=== PATIENT | male | born 1940 | race Caucasian/White ===

== ENCOUNTER 2016-12-01 07:31 | Day surgery (SDC) | payer MEDICARE ==
[2016-12-01] MEDS ORDERED: PHENYLEPHRINE HCL 2.5% OPTH 2ML BTL OP ONE (13:52)
[2016-12-01] MEDS ORDERED: PREDNISOLONE ACETATE 1% OPTH 10ML BOTTLE OPTH ONE (13:52)
[2016-12-01] MEDS ORDERED: TROPICAMIDE 1% 15ML BTL OP ONE (13:52)
[2016-12-01] MEDS ORDERED: TETRACAINE HCL 0.5% 15 ML OPTH BTL OPTH ONE (13:52)
[2016-12-01] MEDS ORDERED: DICLOFENAC SODIUM 2.5 ML DROPS OPTH ONE (13:52)
[2016-12-01] MEDS ORDERED: NEOMYCIN/POLY./DEXAM OPTH OINT OPTH ONE (13:52)
[2016-12-01] MEDS ORDERED: LIDOCAINE 2% MDV (20MG/ML) 20ML VIAL IV ONE (13:52)
[2016-12-01] MEDS ORDERED: TRIAMCINOLONE ACET 40 MG/ML VIAL IM ONE (13:52)
[2016-12-01] MEDS ORDERED: TOBRAMYCIN 0.3% OPTH DROP 5 ML BTL OPTH ONE (13:52)
[2016-12-01] MEDS ORDERED: EPINEPHRINE 1 MG/ML AMPUL SQ ONE (13:52)
--- NOTE | 2016-12-05 15:19 | OP NOTE CHAMES ---
DATE OF PROCEDURE: 12/01/16 PREOPERATIVE DIAGNOSIS: Nuclear sclerotic and posterior subcapsular cataract, left eye. POSTOPERATIVE DIAGNOSIS: Nuclear sclerotic and posterior subcapsular cataract, left eye. OPERATION: Phacoemulsification of cataractous lens with implantation of intraocular lens. LENS IMPLANT USED: Vega Model PCB00 + 19.5 diopters. COMPLICATIONS: None. PROCEDURE IN DETAIL: Following a retrobulbar and facial block, the patient was prepped and draped in the usual fashion for eye surgery. A lid speculum was placed in the left eye after which a 2.4 mm tunnel wound was placed at the temporal limbus and dissected into clear cornea. A paracentesis was placed at 2 oclock hours to the left and right of the initial incision and the chamber deepened with Viscoelastic. The keratome was then used to enter the anterior chamber after which the continuous circular capsulorrhexis was accomplished without difficulty using a bent needle and a Utrata forceps. Hydrodissection and hydrodelineation of the lens was performed after which the nucleus of the lens was removed using the Phaco handpiece in the [id number] technique. The residual cortical material was irrigated and aspirated from the eye after which the bag and chamber were re-examined. The bag was re-inflated with Viscoelastic and the intraocular lens injected into the capsular bag where it centered well. The Viscoelastic was then copiously irrigated and aspirated from the eye after which the temporal tunnel wound and paracentesis were hydrated and the wounds were examined. They were noted to be watertight. The lid speculum was removed from the eye and the eye patched and shielded. The patient was transferred to the recovery room in satisfactory condition and given an appointment to be reexamined in the clinic later today or as directed by Dr. Jamil. Ba Jamil M.D. Date & Time JOB NUMBER: [id number] MTDD
== END 2016-12-01 10:20 | disposition home or self-care (01) ==
LOC: SUR 07:31
PROVIDERS: ATTEND Ophthalmology
DX: H25.12 Age-related nuclear cataract, left eye (principal); J44.9 Chronic obstructive pulmonary disease, unspecified; H25.032 Anterior subcapsular polar age-related cataract, left eye; K74.60 Unspecified cirrhosis of liver
CPT/HCPCS: 66984; 00142; J3301; J0171

== ENCOUNTER 2017-01-10 13:46 | Emergency (ER) | payer MEDICARE ==
--- NOTE | 2017-01-10 14:07 | Emergency Department Record ---
History of Present Illness - General Chief Complaint: Hypotension Stated Complaint: LOW BP,IRREGULAR HEARTBEAT Time Seen by Provider: 01/10/17 13:55 Source: Patient Mode of Arrival: Ambulatory Limitations: No limitations - History of Present Illness Initial Comments: The patient is here due to worsening of his generalized weakness over the last 2 months. He states he has no energy and has felt increasing fatigue over that time. 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 Today he felt that his HR was irregular so he decided to come to the ER. He denies any CP, SOB, CROW, nausea, vomiting, dysuria, diarrhea or back pain. He did have a neg Nuclear Stress Test in late October of this year. The patient did drive himself to the ER and denies any worsening of his symptoms with standing and walking. MD Complaint: Other Onset/Timin -: Month(s) Timing: Unsure Description: Other History of Same: No History of Trauma: No Severity: Mild Improves With: Nothing Worsens With: Nothing Associated Symptoms: Shortness of breath, Weakness - [place] Coma Scale Eye Response: (4) Open spontaneously Motor Response: (6) Obeys commands Verbal Response: (5) Oriented [place] Total: 15 - Related Data Home Medications Medication Instructions Recorded Confirmed Last Taken Acetaminophen [Tylenol] 325 mg PO DAILY tab 02/02/16 01/10/17 Unknown Fluticasone/Salmeterol [Advair 1 puff IH BID puff 02/02/16 01/10/17 Unknown 100-50 Diskus] Mesalamine [Lialda] 1.2 gm PO BID tab. 02/02/16 01/10/17 Unknown Multivitamin [Multi-Vitamin Daily] 1 each PO DAILY tab 02/02/16 01/10/17 Unknown [place]-3 Fatty Acids/Fish Oil [Fish 1 cap PO QD cap 02/02/16 01/10/17 Unknown Oil 1,000 Mg Capsule] Furosemide [Lasix] 20 mg PO DAILY 01/10/17 01/10/17 Unknown Spironolactone [Spironolactone] 25 mg PO DAILY 01/10/17 01/10/17 Unknown Allergies Allergy/AdvReac Type Severity Reaction Status Date / Time No Known Drug Allergies Allergy Verified 01/10/17 13:57 Travel Screening - Travel/Exposure Within Last 30 Days Have you traveled within the last 30 days?: No Review of Systems Constitutional: Reports: Malaise. Denies: Chills Eyes: Denies: Eye discharge ENT: Denies: Congestion, Other Respiratory: Denies: Dyspnea Cardiovascular: Denies: Chest pain Endocrine: Reports: Fatigue Gastrointestinal: Denies: Abdominal pain Genitourinary: Denies: Hematuria Musculoskeletal: Denies: Back pain Past Medical History - SOCIAL HISTORY Smoking Status: Never smoker Alcohol Use: None Drug Use: None - RESPIRATORY Hx Respiratory Disorders: Yes Hx Pneumonia: Yes (2009) - CARDIOVASCULAR Hx Cardio Disorders: Yes Hx Edema: Yes Comment:: "small leak in valve" - NEURO Hx Neuro Disorders: Yes Hx Dizziness: Yes - GI Hx GI Disorders: Yes Hx Reflux: Yes Hx Liver Disease: Yes (liver bx 06/2015) Hx Nausea/Vomiting: Yes Hx Cirrhosis: Yes Hx of Polyps: Yes Comment:: ulcerative colitis - Hx Genitourinary Disorders: No - ENDOCRINE Hx Endocrine Disorders: No - MUSCULOSKELETAL Hx Musculoskeletal Disorders: Yes - PSYCH Hx Psych Problems: No - HEMATOLOGY/ONCOLOGY Hx Hematology/Oncology Disorders: Yes Hx Blood Transfusions: Yes Hx Blood Transfusion Reaction: No Family Medical History Any Significant Family History?: Yes Hx Heart Disease: Father Physical Exam - General General Appearance: Alert, Oriented x3, Cooperative, No acute distress - Head Head exam: Atraumatic, Normocephalic, Normal inspection - Eye Eye exam: Normal appearance, PERRL - ENT Throat exam: Normal inspection. negative: Tonsillar erythema, Tonsillar exudate - Neck Neck exam: Normal inspection, Full ROM. negative: Tenderness - Respiratory Respiratory exam: Normal lung sounds bilaterally. negative: Respiratory distress - Cardiovascular Cardiovascular Exam: Regular rate, Normal rhythm, Normal heart sounds - GI/Abdominal GI/Abdominal exam: Soft, Normal bowel sounds. negative: Tenderness - Extremities Extremities exam: Normal inspection, Full ROM, Normal capillary refill. negative: Tenderness - Back Back exam: Reports: Normal inspection - Neurological Neurological exam: Alert, Normal gait. negative: Abnormal gait, Motor sensory deficit - Psychiatric Psychiatric exam: negative: Anxious, Depressed Course Vital Signs 01/10/17 13:51 Temperature 98.0 F Pulse Rate 91 H Respiratory 20 Rate Blood Pressure 126/75 Pulse Ox 98 - Reevaluation(s) Reevaluation #1: The patient is doing well. He is up ambulating normally with no new symptoms. His BP has been stable in the ER and his HR has been regular. I did explain to the patient that his lab work does have some abnormalities but they are chronic for him and not significantly different than in the past. He is to see his PCP later this week for recheck. 01/10/17 15:13 Medical Decision Making - Data Complexity MDM Data: Labs Ordered and/or Reviewed, X-Ray Ordered and/or Reviewed, EKG Ordered and/or Reviewed - Lab Data Result diagrams: 01/10/17 14:10 01/10/17 14:10 - EKG Data -: EKG Interpreted by Me EKG: No Acute Changes, Normal EKG - Radiology Data Radiology results: Report reviewed (CXR: No acute changes.) Disposition Disposition: Discharge Clinical Impression: Weakness Disposition: Home, Self-Care Condition: (1) Good Instructions: Fatigue (ED) Additional Instructions: Please continue your regular medicines and see your PCP later this week for recheck. Call for an appointment. Please return to the ER for any problems. Forms: Patient Portal Access Time of Disposition: 15:22 Quality - Quality Measures Quality Measures: N/A - Blood Pressure Screening Blood Pressure Classification: Pre-Hypertensive BP Reading Systolic Measurement: 126 Diastolic Measurement: 75 Screening for High Blood Pressure: < Pre-Hypertensive BP, F/U Documented > [ G8950] Pre-Hypertensive Follow-up Interventions: Follow-up with rescreen every year.
[2017-01-10 14:15] LABS: BASO % 0.4 % (0-6); GRAN % 75.2 % (47-80); HEMATOCRIT 29.2 % (42.0-52.0); HEMOGLOBIN 10.4 gm/dl (14.0-18.0); LYMPH % 14.7 % (16-45); MEAN CORPUSCULAR HGB CONC 35.6 g/dl (32-36); MEAN PLATELET VOLUME 12.1 fl (7.4-10.4); MONO % 9.7 % (0-9); PLATELET COUNT 177 K/uL (130-400); RED BLOOD COUNT 2.89 M/uL (4.40-5.70); RED CELL DISTRIBUTION WIDTH 17.6 % (11.5-14.5); WHITE BLOOD COUNT W/O DIFF 4.8 K/uL (4.2-12.2)
[2017-01-10 14:17] LABS: MEAN CORPUSCULAR HEMOGLOBIN 35.9 pg (27-33)
[2017-01-10] MEDS: 0.9 % SODIUM CHLORIDE 1,000 ML BAG IV ONE (14:24)
[2017-01-10 14:31] LABS: INR 1.02; PARTIAL THROMBOPLASTIN TIME 27.5 SECONDS (24.5-39.1); PROTHROMBIN TIME (PATIENT) 11.5 SECONDS (9.5-12.1)
[2017-01-10 14:32] LABS: ALB/GLOB RATIO 0.8 (1.1-1.8); ALBUMIN 3.6 gm/dL (3.5-5.0); ALKALINE PHOSPHATASE 406 U/L (38-126); ALT/SGPT 110 U/L (21-72); ANION GAP 9.5 (7-16); AST/SGOT 176 U/L (17-59); BILIRUBIN,TOTAL 5.19 mg/dL (0.2-1.3); BLOOD UREA NITROGEN 19 mg/dL (9-20); CARBON DIOXIDE 25.5 mmol/L (22-30); CREATINE PHOSPHOKINASE 78 U/L (55-170); CREATININE 0.9 mg/dL (0.66-1.25); EST GLOMERULAR FILTRATION RATE > 60 ml/min; GLUCOSE,RANDOM 120 mg/dL (70-110); TOTAL PROTEIN 8.1 gm/dL (6.3-8.2)
[2017-01-10 14:43] LABS: TROPONIN I < 0.012 ng/mL (0.00-0.034)
--- NOTE | 2017-01-11 09:59 | RADIOLOGY REPORT ---
EXAM: CHEST, TWO VIEWS HISTORY: WEAKNESS. SHORTNESS OF BREATH. UNABLE TO WALK. TECHNIQUE: Upright PA and lateral views of the chest were obtained. Comparison: Two view chest radiographic examination dated 02/02/16. FINDINGS: The heart is not enlarged and the pulmonary vasculature is nondilated. The lungs appear hyperinflated consistent with COPD. Minor biapical pleural and parenchymal scarring. No lung consolidation is seen. Minor reticular opacity prominence is noted in the lower lungs consistent with mild chronic interstitial change/scarring. There are mild degenerative changes of the visualized spine and shoulder girdles. IMPRESSION: NO EVIDENCE OF ACUTE CARDIOPULMONARY DISEASE WITHOUT SIGNIFICANT CHANGE SINCE 02/02/16. CHRONIC FINDINGS, DETAILED ABOVE. JOB NUMBER: [id number] [facility]
== END 2017-01-10 15:28 | disposition home or self-care (01) ==
LOC: ER 13:46
DX: R53.1 Weakness (principal); R06.02 Shortness of breath; K74.60 Unspecified cirrhosis of liver; K51.90 Ulcerative colitis, unspecified, without complications
CPT/HCPCS: 71020; 80053; 82140; 82550; 82553; 84484; 85025; 85610; 85730; 93005; 93010; 96360; 99284; J7030

== ENCOUNTER 2017-03-16 08:04 | Day surgery (SDC) | payer MEDICARE ==
[2017-03-16] MEDS ORDERED: LIDOCAINE 2% MDV (20MG/ML) 20ML VIAL IV ONE (16:10)
[2017-03-16] MEDS ORDERED: PROPOFOL 10 MG/ML VIAL IV ONE (16:10)
[2017-03-16] MEDS ORDERED: FENTANYL PF 100MCG/2ML VIAL IV ONE (16:10)
--- NOTE | 2017-03-22 09:40 | Operative Note ---
DATE OF SURGERY: 03/16/2017 OPERATION: 1. ESOPHAGOGASTRODUODENOSCOPY. 2. COLONOSCOPY with biopsy. PREOPERATIVE DIAGNOSIS: History of PSC, ulcerative colitis, and cirrhosis. POSTOPERATIVE DIAGNOSES: 1. Small esophageal varices without stigmata of recent hemorrhage. 2. Portal gastropathy. 3. Colon polyps in the transverse and sigmoid colon, suspected pseudopolyps. 4. Burnt-out colitis. PROCEDURE: After informed consent was obtained from the patient, he was placed in the left lateral decubitus position in the endoscopy suite, sedated and monitored by the department of anesthesia. Once sedated, a well-lubricated [id number] gastroscope was placed in the posterior oropharynx and under direct visualization passed to the proximal esophagus. The endoscope was advanced through the proximal, mid, and distal esophagus. The distal esophagus demonstrated small varices. In fact, there were 3 columns of small varices. No stigmata of recent hemorrhage, fresh or old blood was seen. No inflammation was noted. The gastric body demonstrated normal distensibility, normal rugal folds. There was a mosaic pattern consistent with portal hypertensive gastropathy. J-turn views of the proximal stomach revealed no fundal or cardia varices. The endoscope was then straightened and retracted from the patient with no new findings or abnormalities were identified. Digital rectal exam was unremarkable. A well-lubricated [id number] colonoscope was inserted into the rectum and advanced to the cecum. Preparation quality was good to excellent. The ileocecal valve, appendiceal orifice, ascending colon, transverse colon, descending colon, sigmoid colon, and rectum were carefully inspected. There was a pale appearance to the mucosa and a loss of haustral markings in certain areas suggestive of burnt-out colitis. There were 2 hyperemic polyps in the transverse colon and 1 in the sigmoid colon that had the appearance of pseudopolyps. Each of these areas was biopsied and removed. Forward and J-turn views of the rectum and anorectum were unremarkable. The endoscope was straightened, the rectal ampulla deflated, and the endoscope was removed. RECOMMENDATIONS: At this point, I would suggest the patient be on a low-dose beta greg. I would suggest starting him on Inderal 10 mg 3 times per day. I will discuss this further with you given his history of COPD and concern that a beta greg in this instance could potentially exacerbate his COPD. A repeat upper endoscopy in 1 year would be suggested and a colonoscopy in 2 years would be suggested. In addition, given the elevation of his bilirubin, I would suggest an MRCP be performed to evaluate his biliary ductal system. As always, thank you for allowing me to participate in the healthcare of your patients. CC: Dr. Inez ECHOLS
== END 2017-03-16 10:00 | disposition home or self-care (01) ==
LOC: HOP 08:04
PROVIDERS: ATTEND Internal Medicine Gastroenterology
DX: K51.90 Ulcerative colitis, unspecified, without complications (principal); I85.00 Esophageal varices without bleeding; K76.6 Portal hypertension; D12.2 Benign neoplasm of ascending colon; K51.40 Inflammatory polyps of colon without complications; K52.89 Other specified noninfective gastroenteritis and colitis
CPT/HCPCS: 45380; 43235; 00810; J3010

== ENCOUNTER 2017-03-30 12:47 | Inpatient (IN) | payer MEDICARE ==
[2017-03-30] MEDS ORDERED: 0.9 % SODIUM CHLORIDE 1,000 ML BAG IV ONE (13:05)
--- NOTE | 2017-03-30 13:11 | Emergency Department Record ---
History of Present Illness - General Chief Complaint: Syncope Stated Complaint: FEELS FAINT AND BLOOD IN STOOL Time Seen by Provider: 03/30/17 12:58 Source: Patient Mode of Arrival: Ambulatory Limitations: No limitations - History of Present Illness Initial Comments: 76 yo male presents with progressive weakness and now he is feeling faint. He reports he has not felt well chronically but worse the last several days. Today he noted some blood in his stools. He does have a history of colitis. He did have endoscopy in the last 2 weeks at [facility] with Dr Tejeda. He denies vomiting or pain. He has noted some yellowing of the skin. He reports a history of cirrhosis. He reports two bloody stools today. One at 6am and a second at 10am. No pain. No vomiting. He does not drink alcohol. Complaint: [place] faint -: Week(s) Prodromal Symptoms: Lightheaded Current Symptoms: Lightheaded Context: Recent illness, Standing up Treatments Prior to Arrival: None - Artemio Coma Scale Eye Response: (4) Open spontaneously Motor Response: (6) Obeys commands Verbal Response: (5) Oriented [place] Total: 15 - Related Data Home Medications Medication Instructions Recorded Confirmed Last Taken Calcium Carbonate [Calcium] 500 mg PO DAILY 03/30/17 03/30/17 03/30/17 Rifaximin [Xifaxan] 550 mg PO BID 03/30/17 03/30/17 03/30/17 Ursodiol 600 mg PO BID 03/30/17 03/30/17 03/30/17 Allergies Allergy/AdvReac Type Severity Reaction Status Date / Time No Known Drug Allergies Allergy Verified 03/30/17 13:07 Review of Systems Constitutional: Reports: Malaise, Weakness. Denies: Chills, Fever Eyes: Denies: Eye discharge, Eye pain, Photophobia, Vision change ENT: Denies: Congestion, Epistaxis, Throat pain Respiratory: Reports: Dyspnea. Denies: Cough, Hemoptysis, Stridor, Wheezes Cardiovascular: Denies: Chest pain, Palpitations, Syncope (feels light headed) Endocrine: Reports: Fatigue. Denies: Polydipsia, Polyuria Gastrointestinal: Reports: Hematochezia, Nausea. Denies: Abdominal pain, Constipation, Hematemesis, Vomiting Genitourinary: Denies: Discharge, Dysuria, Frequency, Hematuria, Urgency Musculoskeletal: Denies: Arthralgia, Back pain, Myalgia, Neck pain Skin: Reports: As per HPI, Change in color. Denies: Bruising Neurological: Reports: Weakness (generalized). Denies: Confusion, Headache, Numbness Psychiatric: Denies: Anxiety Hematological/Lymphatic: Denies: Blood Clots, Easy bleeding, Easy bruising, Swollen glands Past Medical History - SOCIAL HISTORY Smoking Status: Never smoker - RESPIRATORY Hx Respiratory Disorders: Yes Hx COPD: Yes Hx Pneumonia: Yes (2009) - CARDIOVASCULAR Hx Cardio Disorders: Yes Hx Deep Vein Thrombosis: Yes Hx Edema: Yes Comment:: "small leak in valve" - NEURO Hx Neuro Disorders: Yes Hx Dizziness: Yes - GI Hx GI Disorders: Yes Hx Reflux: Yes Hx Liver Disease: Yes (liver bx 06/2015) Hx Nausea/Vomiting: Yes Hx Cirrhosis: Yes Hx of Polyps: Yes Comment:: ulcerative colitis - Hx Genitourinary Disorders: No - ENDOCRINE Hx Endocrine Disorders: No - MUSCULOSKELETAL Hx Musculoskeletal Disorders: Yes - PSYCH Hx Psych Problems: No - HEMATOLOGY/ONCOLOGY Hx Hematology/Oncology Disorders: Yes Hx Blood Transfusions: Yes Hx Blood Transfusion Reaction: No Family Medical History Hx Heart Disease: Father Physical Exam - General General Appearance: Alert, Oriented x3, Cooperative, No acute distress, Other ( Appears thin and frail) Limitations: No limitations - Head Head exam: Atraumatic, Normocephalic, Normal inspection - Eye Eye exam: PERRL, EOMI, Scleral icterus. negative: Normal appearance, Conjunctival injection, Periorbital swelling - ENT ENT exam: Normal exam, Mucous membranes moist, Normal orophraynx Ear exam: Normal external inspection Nasal Exam: Normal inspection Mouth exam: Normal external inspection Teeth exam: Normal inspection - Neck Neck exam: Normal inspection, Full ROM. negative: Tenderness - Respiratory Respiratory exam: Normal lung sounds bilaterally. negative: Respiratory distress - Cardiovascular Cardiovascular Exam: Regular rate, Normal rhythm, Normal heart sounds Peripheral Pulses: 2+: Radial (R), Radial (L) - GI/Abdominal GI/Abdominal exam: Soft. negative: Tenderness - Rectal Rectal exam: Deferred - exam: Deferred - Extremities Extremities exam: Normal inspection, Full ROM. negative: Pedal edema, Tenderness - Back Back exam: Reports: Normal inspection, Full ROM. Denies: CVA tenderness (R), CVA tenderness (L), Muscle spasm, Rash noted, Tenderness - Neurological Neurological exam: Alert, Oriented X3 - Psychiatric Psychiatric exam: Normal affect, Normal mood - Skin Skin exam: Other (jaundice diffusely) Course - Reevaluation(s) Reevaluation #1: The stool provided by the patient demonstrated mixed blood The labs were reviewed Hgb is 7.7. His prior on 03/09/17 was 10.4 Bun is 27 His TBili is 5.4 with prior of 6.1. Bili is chronically elevated EKG NSR rate 83 intervals normal, axis normal, ST no acute changes. 03/30/17 14:10 03/30/17 14:12 EGD and Colonoscopy on 03/16/17 Small esophageal varices, no bleeding, portal gastropathy, colon polyps, burnt out colitis. 03/30/17 14:29 I CARYN Philippe He will admit with serial hemoglobins, GI consult Medical Decision Making - Lab Data Result diagrams: 03/30/17 13:16 03/30/17 13:16 Disposition Disposition: Admit Clinical Impression: Weakness, Anemia GI bleed Qualifiers: GI bleed type/associated pathology: unspecified gastrointestinal hemorrhage type Qualified Code(s): K92.2 - Gastrointestinal hemorrhage, unspecified Disposition: Still a Patient at [facility] Decision to Admit: Admit from ER Decision to Admit Date: 03/30/17 Decision to Admit Time: 14:30 Forms: Patient Portal Access Time of Disposition: 14:30 Quality - Quality Measures Quality Measures: N/A - Blood Pressure Screening Does Patient Have Any of the Following: No Blood Pressure Classification: Normal BP Reading Systolic Measurement: 98 Diastolic Measurement: 53 Screening for High Blood Pressure: < Normal BP, F/U Not Required > [G8783]
[2017-03-30 13:41] LABS: HEMATOCRIT 22.8 % (42.0-52.0); HEMOGLOBIN 7.7 gm/dl (14.0-18.0); MEAN CELL VOLUME 102.7 fl (81-97); MEAN CORPUSCULAR HGB CONC 33.8 g/dl (32-36); MEAN PLATELET VOLUME 12.2 fl (7.4-10.4); PLATELET COUNT 213 K/uL (130-400); RED BLOOD COUNT 2.22 M/uL (4.40-5.70); RED CELL DISTRIBUTION WIDTH 17.8 % (11.5-14.5); WHITE BLOOD COUNT W/O DIFF 5.7 K/uL (4.2-12.2)
[2017-03-30 13:43] LABS: MEAN CORPUSCULAR HEMOGLOBIN 34.6 pg (27-33)
[2017-03-30 13:48] LABS: HYPOCHROMIA 1+; PLATELET ESTIMATE NORMAL (NORMAL)
[2017-03-30 13:54] LABS: INR 1.19; PARTIAL THROMBOPLASTIN TIME 29.7 SECONDS (24.5-39.1); PROTHROMBIN TIME (PATIENT) 12.9 SECONDS (9.5-12.1)
[2017-03-30 14:02] LABS: ALBUMIN 2.8 g/dL (4.0-5.0); ALKALINE PHOSPHATASE 305 U/L (40-129); ALT/SGPT 54 U/L (<41); AST/SGOT 102 U/L (10.0-50.0); BILIRUBIN,DIRECT 3.6 mg/dL (0-0.3); BLOOD UREA NITROGEN 27 mg/dL (8-23); CREATININE 0.6 mg/dL (0.7-1.2); EST GLOMERULAR FILTRATION RATE > 60 mL/min; GLUCOSE,RANDOM 113 mg/dL (74-109); LIPASE 14 U/L (13-60); TOTAL PROTEIN 6.2 g/dL (6.6-8.7)
[2017-03-30 14:04] LABS: TROPONIN I < 0.30 ng/mL (0.00-0.300)
[2017-03-30] MEDS ORDERED: POTASSIUM CHLORIDE/D5-0.9%NACL 20 MEQ/1,000 ML BAG IV ONE (14:31)
[2017-03-30] MEDS ORDERED: ONDANSETRON HCL IV 4 MG/2 ML VIAL IVP PRN (14:31)
[2017-03-30 14:45] LABS: ROTOVIRUS NOT DETECTED (NOT DETECT)
[2017-03-30 14:49] LABS: CRYPTOSPORIDIUM PARVUM ANTIGEN NOT DETECTED (NOT DETECT); GIARDIA LAMBLIA ANTIGEN NOT DETECTED (NOT DETECT)
[2017-03-30 15:07] LABS: ABO GROUP O; ANTIBODY SCREEN NEGATIVE (NEGATIVE); RH TYPE NEGATIVE
[2017-03-30 15:34] LABS: MOLECULAR C DIFF TOXIN SCREEN NOT DETECTED (NOT DETECT)
[2017-03-30 16:16] LABS: URINE APPEARANCE CLEAR; URINE BILIRUBIN MODERATE (NEGATIVE); URINE BLOOD NEGATIVE (NEGATIVE); URINE GLUCOSE (UA) NEGATIVE (NEGATIVE); URINE KETONE NEGATIVE (NEGATIVE); URINE LEUKOCYTE ESTERASE NEGATIVE (NEGATIVE); URINE NITRITE NEGATIVE (NEGATIVE); URINE PROTEIN NEGATIVE (NEGATIVE)
[2017-03-30 16:18] LABS: URINE COLOR AMBER
[2017-03-30] MEDS ORDERED: 0.9 % SODIUM CHLORIDE 1000ML 1,000 ML IV ONE (18:56)
[2017-03-30 19:53] LABS: BASO % 0.2 % (0-6); GRAN % 74.4 % (47-80); LYMPH % 18.4 % (16-45); MEAN CELL VOLUME 103.7 fl (81-97); MEAN CORPUSCULAR HGB CONC 33.7 g/dl (32-36); MEAN PLATELET VOLUME 11.6 fl (7.4-10.4); PLATELET COUNT 174 K/uL (130-400); RED BLOOD COUNT 1.63 M/uL (4.40-5.70); RED CELL DISTRIBUTION WIDTH 17.8 % (11.5-14.5); WHITE BLOOD COUNT W/O DIFF 4.8 K/uL (4.2-12.2)
[2017-03-30 19:56] LABS: MEAN CORPUSCULAR HEMOGLOBIN 34.9 pg (27-33)
[2017-03-30 19:58] LABS: HEMATOCRIT 16.9 % (42.0-52.0)
[2017-03-30] MEDS ORDERED: PANTOPRAZOLE SODIUM IV 40 MG VIAL IVP ONE (20:03)
[2017-03-30 20:41] LABS: IMMED. SPIN CROSSMATCH COMPATIBLE
[2017-03-30 20:45] LABS: IMMED. SPIN CROSSMATCH COMPATIBLE
[2017-03-30] MEDS: ADVAIR INH SCH (22:02)
[2017-03-30] MEDS: RIFAXIMIN 550 MG TABLET PO SCH (22:28)
[2017-03-30] MEDS: LIALDA 1.2 GM PO SCH (22:29)
[2017-03-30] MEDS: URSODIOL 300 MG PO SCH (22:29)
[2017-03-31] MEDS ORDERED: 0.9 % SODIUM CHLORIDE 1,000 ML BAG IV ONE (04:33)
[2017-03-31 04:45] LABS: HEMATOCRIT 20.7 % (42.0-52.0)
[2017-03-31 06:37] LABS: BASO % 0.5 % (0-6); GRAN % 66.7 % (47-80); HEMATOCRIT 20.2 % (42.0-52.0); LYMPH % 26.3 % (16-45); MEAN CELL VOLUME 92.2 fl (81-97); MEAN CORPUSCULAR HEMOGLOBIN 31.5 pg (27-33); MEAN CORPUSCULAR HGB CONC 34.2 g/dl (32-36); MEAN PLATELET VOLUME 12.3 fl (7.4-10.4); MONO % 6.5 % (0-9); PLATELET COUNT 125 K/uL (130-400); RED BLOOD COUNT 2.19 M/uL (4.40-5.70); RED CELL DISTRIBUTION WIDTH 21.5 % (11.5-14.5); WHITE BLOOD COUNT W/O DIFF 3.7 K/uL (4.2-12.2)
[2017-03-31 06:58] LABS: IMMED. SPIN CROSSMATCH COMPATIBLE
[2017-03-31 06:59] LABS: IMMED. SPIN CROSSMATCH COMPATIBLE
[2017-03-31 07:27] LABS: BLOOD UREA NITROGEN 30 mg/dL (8-23); CREATININE 0.7 mg/dL (0.7-1.2); EST GLOMERULAR FILTRATION RATE > 60 mL/min; GLUCOSE,RANDOM 93 mg/dL (74-109)
[2017-03-31 07:54] LABS: HEMOGLOBIN 5.7 gm/dl (14.0-18.0)
[2017-03-31 07:55] LABS: HEMOGLOBIN 6.9 gm/dl (14.0-18.0)
[2017-03-31] MEDS ORDERED: SPIRONOLACTONE 25 MG TAB PO SCH (10:00)
[2017-03-31] MEDS ORDERED: PANTOPRAZOLE SODIUM IV 40 MG VIAL IV SCH (10:00)
[2017-03-31] MEDS ORDERED: FUROSEMIDE 20 MG TABLET PO SCH (10:00)
--- NOTE | 2017-03-31 10:10 | History and Physical Report ---
DATE OF ADMISSION: 03/30/2017 CHIEF COMPLAINT: Weakness, blood in the stool x 2, and low hemoglobin. HISTORY OF THE PRESENT ILLNESS: This 76-year-old male presented to the Emergency Department with syncope, feeling faint; actually, was near-syncope. He has been feeling weak for the last several days. Today, he noted 2 bloody stools, 1 earlier in the day, and then 1 before he came in here. He does have a history of ulcerative colitis and cirrhosis of the liver. He had an endoscopy done 2 weeks ago at [facility], upper and lower, by Dr. Tejeda. Nothing significant found per the patient. He denies any vomiting or abdominal pain. He has yellowing of his skin. The 2 blood stools were 1 at 6 a.m. and the other at 10 a.m. He does not drink alcohol. 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 He never smoked. Ulcerative colitis, GERD, hepatitis, and jaundice. Low back pain with a ruptured disk, and cirrhosis of the liver, which has been for many years. He also has Marfan's disease according to the patient. He said it is a new diagnosis for him, but he is tall, 6'4", skinny, and has long fingers. PAST SURGICAL HISTORY: Left hernia repair 2014, tonsillectomy, lung biopsy. He had a rare pneumonia in 2009. In 2007, he had right inguinal hernia repair, and a left mastectomy earlier because of gynecomastia. MEDICATIONS ON ADMISSION: Spiriva 50 mg daily, ursodiol 600 mg b.i.d., Xifaxan 550 b.id., Lialda 1.2 b.i.d., omega-3 fatty acids 1 cap daily, multivitamins once a day, calcium with D once a day, Lasix 20 mg daily, spironolactone 50 mg daily, Advair 100/50 one puff b.i.d., and Tylenol p.r.n. ALLERGIES: No allergies. SOCIAL HISTORY: He has never smoked. No alcohol or drug use. REVIEW OF SYSTEMS: HEENT: No upper respiratory infection symptoms, cough, cold , or congestion. Cardiovascular: No chest pain, palpitations, or arrhythmias. Respiratory: He does have COPD, but it is stable at this time. Gastrointestinal: He does have cirrhosis. He is not a candidate for a liver transplant, at least he has been told that by GI because he is too old. See Chief Complaint. He had 2 bloody stools. No nausea, vomiting or abdominal pain. Genitourinary: No dysuria, hematuria, frequency, or burning on urination. Musculoskeletal: He moves all 4 extremities. He does have some arthritis and low back pain. Neurologic: No CVA, paralysis, or paresthesias. Endocrine: No diabetes or thyroid disease. Integument: No rash, ulcers, changes in moles, or yellow skin. PHYSICAL EXAMINATION: VITAL SIGNS: Height is 6'4". Weight is 140 pounds. Temperature is 98.1. Pulse is 83. Blood pressure 87/57. Will stop the Lasix and spironolactone and will start normal saline at 100 mL an hour. Respiratory rate is 18. Pulse ox 99% on room air. HEENT: Pupils equal, round, and reactive to light and accommodation. Extraocular muscles intact. Throat is clear. Nose is clear. Tympanic membranes normal. No oral lesions. NECK: Supple. No jugular venous distention. No hepatojugular reflux. No carotid bruits. Thyroid is smooth. CARDIOVASCULAR: Regular rate and rhythm without murmurs, clicks, rubs, or gallops. RESPIRATORY: Clear to auscultation and percussion. ABDOMEN: Soft, nontender, no hepatosplenomegaly. No masses or tenderness. Bowel sounds active. No bruits. He is jaundiced in appearance in his eyes and his skin. BREASTS: Normal male breasts. GENITALIA: Normal male genitalia. RECTAL: Deferred. NEUROLOGIC: Cranial nerves II-XII intact. No gross deficits. Sensation normal. Strength normal. Deep tendon reflexes equal bilaterally. Babinski is negative. MENTAL STATUS: Alert and oriented x3. IMPRESSION: 1. GI bleed. 2. History of cirrhosis. 3. History of ulcerative colitis. 4. History of GERD. 5. History of COPD. 6. History of low back pain. PLAN: Serial hemoglobin and hematocrit every 8 hours. Basic metabolic profile in the morning. IV fluids. GI consult. INPATIENT CERTIFICATION: Admit to Inpatient Care. Based on my medical assessment and after consideration of patient risk factors, age, comorbidities, and patient presenting symptoms on Acute, I expect this patient will remain in the hospital greater than or equal to 2 midnights, and the services needed warrant inpatient care because of GI bleed, serial hemoglobins, and a GI evaluation. ESTIMATED LENGTH OF STAY: 3 days. The patient may reasonably be expected to be discharged or transferred to a hospital within 96 hours after admission to [facility]. I certify that my determination is in accordance with my understanding of Medicare requirements for reasonable and necessary inpatient services. ONESIMO
[2017-03-31] MEDS: ADVAIR INH SCH (10:31)
[2017-03-31] MEDS: RIFAXIMIN 550 MG TABLET PO SCH (12:00)
[2017-03-31] MEDS: LIALDA 1.2 GM PO SCH (12:00)
[2017-03-31] MEDS: URSODIOL 300 MG PO SCH (12:00)
[2017-03-31] MEDS ORDERED: 0.9 % SODIUM CHLORIDE 1000ML 1,000 ML IV ONE (13:57)
--- NOTE | 2017-03-31 16:38 | Discharge Note ---
VTE H&P Assessment - Risk for VTE Risk for VTE: Yes Risk Level: Very Low Risk Assessment Date: 03/30/17 Risk Assessment Time: 20:00 VTE Orders Placed or Will Be Placed: No VTE Reason for No Prophylaxis: Not Indicated (GI bleed) Discharge Medications - Discharge Medications Home Medications: Ambulatory Orders Acetaminophen [Tylenol] 325 mg PO DAILY tab 02/02/16 [Last Taken Unknown] Fluticasone/Salmeterol [Advair 100-50 Diskus] 1 puff IH BID puff 02/02/16 [ Last Taken Unknown] Mesalamine [Lialda] 1.2 gm PO BID tab. 02/02/16 [Last Taken 03/30/17] Multivitamin [Multi-Vitamin Daily] 1 each PO DAILY tab 02/02/16 [Last Taken ] [place]-3 Fatty Acids/Fish Oil [Fish Oil 1,000 Mg Capsule] 1 cap PO QD cap [Last Taken 03/30/17] Furosemide [Lasix] 20 mg PO DAILY 01/10/17 [Last Taken 03/30/17] Spironolactone [Spironolactone] 50 mg PO DAILY 01/10/17 [Last Taken 03/30/17] Calcium Carbonate [Calcium] 500 mg PO DAILY 03/30/17 [Last Taken 03/30/17] Rifaximin [Xifaxan] 550 mg PO BID 03/30/17 [Last Taken 03/30/17] Ursodiol 600 mg PO BID 03/30/17 [Last Taken 03/30/17] Discharge Note - Date Date of Discharge Note: 03/31/17 Disposition: Acute Care Hospital Transfer Condition: (2) Stable Additional Instructions: Transfer to Dr. Qureshi at [facility] for further care follow up with Dr. Burgess after discharged from [facility] Forms: Patient Portal Access
--- NOTE | 2017-04-03 12:40 | Discharge Summary ---
DISCHARGE DATE: 03/31/2017 DISCHARGE DIAGNOSES: 1. GI bleed, upper. 2. Cirrhosis of the liver. 3. Portal hypertension. 4. COPD. 5. Ulcerative colitis. 6. GERD. 7. Chronic low back pain. ATTENDING PHYSICIAN: Jose Alejandro Philippe DO REASON FOR HOSPITALIZATION: This 76-year-old male presented to the emergency department with GI bleed, 2 bloody stools prior to coming to the ER. Hemoglobin was 7.7 in the emergency department. Admitted for serial hemoglobin and further evaluation by GI. His hemoglobin dropped down to 5.7. He received 3 units of blood. 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 Discussed the case with Dr. Wolfe who said he looked at the scope that was done [address] Tejeda and said the area in his stomach has a lot of portal hypertension. He would not be able to correct the problem with a scope. He felt the patient should be transferred to [place] where a surgical procedure could be done if he does not stop bleeding spontaneously. THERAPY PROVIDED: He was given 3 units of blood. Consultation with Dr. Wolfe by phone. He reviewed the EGD and he felt he would be better transferred to [place]. HOSPITAL COURSE: His hemoglobin is holding. It was 6.9 before the 3rd transfusion of blood. His vital signs are, last blood pressure was 99/64, pulse 74, temperature 98.2. He has IV fluids going at 100 mL/hour. The patient will be transferred by ambulance. CONDITION ON DISCHARGE: Stable but guarded because of his comorbid conditions. DISCHARGE INSTRUCTIONS: Follow up with Dr. Wiley after he is discharged from [facility]. [facility]
== END 2017-03-31 13:45 | disposition short-term general hospital (02) | DRG 378 ==
LOC: ER 12:47 → MEDSURG 17:43
PROVIDERS: ADMIT Emergency Medicine; ATTEND Emergency Medicine
DX: K92.1 Melena (principal); D62 Acute posthemorrhagic anemia; K76.6 Portal hypertension; Q87.40 Marfan syndrome, unspecified; K74.69 Other cirrhosis of liver; J44.9 Chronic obstructive pulmonary disease, unspecified; J68.4 Chronic respiratory conditions due to chemicals, gases, fumes and vapors; Z87.19 Personal history of other diseases of the digestive system; M54.5 Low back pain
CPT/HCPCS: 93041; 99285 ×2; 83690; 87329; 85730; 85610; 80076; 84484; 80048; 89055; 87425; 81003; 82272; 87493; 85027; 86900; 86901; 86850; 93005; 93010; 36430; P9016; 85014; 85018; 85025; 99219; 99223; C9113; J7030

== ENCOUNTER 2018-01-15 21:46 | Observation (INO) | payer MEDICARE ==
[2018-01-15] MEDS ORDERED: MORPHINE SULFATE 10 MG/ML VIAL IVP ONE (22:14)
[2018-01-15] MEDS ORDERED: PROMETHAZINE HCL 6.25 MG in 0.9 % SODIUM CHLORIDE 100ML 100 ML IVPB ONE (22:14)
[2018-01-15 22:31] LABS: BASO % 0.1 % (0-6); HEMATOCRIT 27.9 % (42.0-52.0); HEMOGLOBIN 9.7 gm/dl (14.0-18.0); LYMPH % 5.6 % (16-45); MEAN CELL VOLUME 101.5 fl (81-97); MEAN CORPUSCULAR HGB CONC 34.8 g/dl (32-36); MEAN PLATELET VOLUME 12.4 fl (7.4-10.4); MONO % 8.7 % (0-9); PLATELET COUNT 148 K/uL (130-400); RED BLOOD COUNT 2.75 M/uL (4.40-5.70); RED CELL DISTRIBUTION WIDTH 16.6 % (11.5-14.5); WHITE BLOOD COUNT W/O DIFF 7.9 K/uL (4.2-12.2)
[2018-01-15 22:32] LABS: MEAN CORPUSCULAR HEMOGLOBIN 35.2 pg (27-33)
[2018-01-15 22:44] LABS: BLOOD UREA NITROGEN 29 mg/dL (8-23); CREATININE 1.2 mg/dL (0.7-1.2); EST GLOMERULAR FILTRATION RATE > 60 mL/min; TOTAL PROTEIN 6.5 g/dL (6.6-8.7)
[2018-01-15 22:46] LABS: GLUCOSE,RANDOM 135 mg/dL (74-109)
[2018-01-15 22:49] LABS: ALB/GLOB RATIO 0.8 (1.1-1.8); ALBUMIN 2.9 g/dL (4.0-5.0); ALKALINE PHOSPHATASE 255 U/L (40-129); ALT/SGPT 28 U/L (<41); AST/SGOT 54 U/L (10.0-50.0)
--- NOTE | 2018-01-15 23:32 | Emergency Department Record ---
History of Present Illness - General Chief Complaint: Fall Injury Stated Complaint: FALL LT SHOULDER PAINB Time Seen by Provider: 01/15/18 22:00 Source: Patient, Family Mode of Arrival: Ambulatory Limitations: No limitations - History of Present Illness Initial Comments: pt fell out of chair injuring his l shoulder. he denies other injury. he has a hx of cirrhosis MD Complaint: Fall Onset/Timin -: Hour(s) Fall From: Standing When Fall Occurred: 1-3 hours BRAND LEAD Fall Witnessed: No Place Fall Occurred: Home Loss of Consciousness: None Prolonged Down Time?: Yes, Minute(s) Symptoms Prior to Fall: None Location - Extremities: Left: Shoulder Severity: Moderate Severity scale (1-10): 6 Quality: Aching Context: Tripped/slipped - [place] Coma Scale Eye Response: (4) Open spontaneously Motor Response: (6) Obeys commands Verbal Response: (5) Oriented Artemio Total: 15 - Related Data Home Medications Medication Instructions Recorded Confirmed Last Taken Omeprazole [Prilosec] 20 mg PO DAILY 01/15/18 01/15/18 Unknown Allergies Allergy/AdvReac Type Severity Reaction Status Date / Time No Known Drug Allergies Allergy Verified 03/30/17 13:07 Travel Screening - Travel/Exposure Within Last 30 Days Have you traveled within the last 30 days?: No Review of Systems Reviewed: No additional complaints except as noted below Constitutional: Reports: As per HPI. Denies: Chills, Fever, Malaise, Night sweats, Weakness, Weight change Eyes: Reports: As per HPI. Denies: Eye discharge, Eye pain, Photophobia, Vision change ENT: Reports: As per HPI. Denies: Congestion, Dental pain, Ear pain, Epistaxis , Hearing loss, Throat pain Respiratory: Reports: As per HPI. Denies: Cough, Dyspnea, Hemoptysis, Stridor, Wheezes Cardiovascular: Reports: As per HPI. Denies: Arrhythmia, Chest pain, Dyspnea on exertion, Edema, Murmurs, Orthopnea, Palpitations, Paroxysmal nocturnal dyspnea, Rheumatic Fever, Syncope Endocrine: Reports: As per HPI. Denies: Fatigue, Heat or cold intolerance, Polydipsia, Polyuria Gastrointestinal: Reports: As per HPI. Denies: Abdominal pain, Constipation, Diarrhea, Hematemesis, Hematochezia, Melena, Nausea, Vomiting Genitourinary: Reports: As per HPI. Denies: Dysuria, Frequency, Hematuria, Incontinence, Retention, Testicular pain, Testicular mass, Urgency Musculoskeletal: Reports: As per HPI. Denies: Arthralgia, Back pain, Gout, Joint swelling, Myalgia, Neck pain Skin: Reports: As per HPI. Denies: Bruising, Change in color, Change in hair/ nails, Lesions, Pruritus, Rash Neurological: Reports: As per HPI. Denies: Abnormal gait, Confusion, Headache, Numbness, Paresthesias, Seizure, Tingling, Tremors, Vertigo, Weakness Psychiatric: Reports: As per HPI. Denies: Anxiety, Auditory hallucinations, Depression, Homicidal thoughts, Suicidal thoughts, Visual hallucinations Hematological/Lymphatic: Reports: As per HPI. Denies: Anemia, Blood Clots, Easy bleeding, Easy bruising, Swollen glands Past Medical History - SOCIAL HISTORY Smoking Status: Never smoker Alcohol Use: None Drug Use: None - RESPIRATORY Hx Respiratory Disorders: Yes Hx COPD: Yes Hx Pneumonia: Yes (2009) - CARDIOVASCULAR Hx Cardio Disorders: Yes Hx Deep Vein Thrombosis: Yes Hx Edema: Yes Comment:: "small leak in valve" - NEURO Hx Neuro Disorders: Yes Hx Dizziness: Yes - GI Hx GI Disorders: Yes Hx Reflux: Yes Hx Liver Disease: Yes (liver bx 06/2015) Hx Nausea/Vomiting: Yes Hx Cirrhosis: Yes Comment:: ulcerative colitis - Hx Genitourinary Disorders: No - ENDOCRINE Hx Endocrine Disorders: No - MUSCULOSKELETAL Hx Musculoskeletal Disorders: Yes Comment:: [place] - PSYCH Hx Psych Problems: No - HEMATOLOGY/ONCOLOGY Hx Hematology/Oncology Disorders: Yes Hx Blood Transfusions: Yes Hx Blood Transfusion Reaction: No Family Medical History Any Significant Family History?: Yes Hx Heart Disease: Father Physical Exam - General General Appearance: Alert, Oriented x3, Cooperative, Mild distress, Other ( cachectic) - Head Head exam: Normal inspection - Eye Eye exam: Normal appearance, PERRL, EOMI, Scleral icterus Pupils: Normal accommodation - ENT ENT exam: Normal exam, Mucous membranes moist, Normal external ear exam, Normal orophraynx Ear exam: Normal external inspection. negative: External canal tenderness Nasal Exam: Normal inspection. negative: Discharge, Sinus tenderness Mouth exam: Normal external inspection, Tongue normal Teeth exam: Normal inspection. negative: Dental caries Throat exam: Normal inspection. negative: Tonsillar erythema, Tonsillar exudate - Neck Neck exam: Normal inspection, Full ROM. negative: Tenderness - Respiratory Respiratory exam: Normal lung sounds bilaterally. negative: Respiratory distress - Cardiovascular Cardiovascular Exam: Normal rhythm, Normal heart sounds, Tachycardia - GI/Abdominal GI/Abdominal exam: Soft, Normal bowel sounds. negative: Tenderness - Rectal Rectal exam: Deferred - exam: Deferred - Extremities Extremities exam: Normal capillary refill, Tenderness Image of Full Body: 1 - tender w swelling - Back Back exam: Reports: Normal inspection, Full ROM. Denies: Muscle spasm, Rash noted, Tenderness - Neurological Neurological exam: Alert, CN II-XII intact, Normal gait, Oriented X3 - Psychiatric Psychiatric exam: Normal affect, Normal mood - Skin Skin exam: Dry, Intact, Normal color, Warm, Other (juandice) Course Vital Signs 01/15/18 22:02 Temperature 97.9 F Pulse Rate [ 104 H Pulse Ox Probe] Respiratory 20 Rate Blood Pressure 106/66 [Right Arm] Pulse Ox 97 - Reevaluation(s) Reevaluation #1: 01/15/18 23:31 labs similar to previous. pt states he takes tylenol for pain, despite cirrhosis, but that it wont be strong enough. pt has hx of ulcerative colitis so motrin is not a good choice 01/15/18 23:32 Medical Decision Making - Lab Data Result diagrams: 01/15/18 22:25 01/15/18 22:25 Lab Results 01/15/18 01/15/18 Range/Units 22:25 22:25 WBC 7.9 (4.2-12.2) K/uL RBC 2.75 L (4.40-5.70) M/uL Hgb 9.7 L (14.0-18.0) gm/dl Hct 27.9 L (42.0-52.0) % MCV 101.5 H (81-97) fl MCH 35.2 H (27-33) pg MCHC 34.8 (32-36) g/dl RDW 16.6 H (11.5-14.5) % Plt Count 148 (130-400) K/uL MPV 12.4 H (7.4-10.4) fl Neutrophils % 84.0 H (47-80) % Band Neutrophils % 1.0 (0-5) % Lymphocytes % 5.6 L (16-45) % Monocytes % 8.7 (0-9) % Eosinophils % 0.0 (0-6) % Basophils % 0.1 (0-6) % Lymphocytes 5.0 L (16-45) % Monocytes 10.0 H (0-9) % Basophils 0.0 (0-6) % Eosinophil Count 0.0 (0-6) % Sodium 135 L (136-145) mmol/L Potassium 3.3 L (3.4-4.5) mmol/L Chloride 97 L (98-107) mmol/L Carbon Dioxide 24.0 (22-29) mmol/L Anion Gap 14.0 (7-16) BUN 29 H (8-23) mg/dL Creatinine 1.2 (0.7-1.2) mg/dL Estimated GFR > 60 mL/min Random Glucose 135 H (74-109) mg/dL Calcium 8.4 L (8.8-10.2) mg/dL Total Bilirubin 4.80 H (0.2-1.0) mg/dL AST 54 H (10.0-50.0) U/L ALT 28 (<41) U/L Alkaline Phosphatase 255 H (40-129) U/L Total Protein 6.5 L (6.6-8.7) g/dL Albumin 2.9 L (4.0-5.0) g/dL Globulin 3.6 (1.4-4.8) gm/dL Albumin/Globulin Ratio 0.8 L (1.1-1.8) Disposition Disposition: Admit Clinical Impression: Unable to ambulate Fracture, clavicle closed, shaft Qualifiers: Encounter type: initial encounter Fracture alignment: displaced Laterality: left Qualified Code(s): S42.022A - Displaced fracture of shaft of left clavicle , initial encounter for closed fracture Cirrhosis Qualifiers: Hepatic cirrhosis type: other cirrhosis Qualified Code(s): K74.69 - Other cirrhosis of liver Disposition: Still a Patient at [facility] Decision to Admit: Admit from ER Decision to Admit Date: 01/15/18 Decision to Admit Time: 23:51 Condition: (1) Good Instructions: Fall Prevention for Older Adults (ED), Clavicle Fracture (ED), Cirrhosis (ED) Additional Instructions: follow up with dr lanier. sleep elevated. ice to shoulder. Quality - Quality Measures Quality Measures: N/A - Blood Pressure Screening Does Patient Have Any of the Following: No Blood Pressure Classification: Normal BP Reading Systolic Measurement: 106 Diastolic Measurement: 66 Screening for High Blood Pressure: < Normal BP, F/U Not Required > [G8783]
[2018-01-16] MEDS ORDERED: MORPHINE SULFATE 10 MG/ML VIAL IVP PRN (00:33)
[2018-01-16] MEDS ORDERED: ONDANSETRON HCL IV 4 MG/2 ML VIAL IVP PRN (00:33)
[2018-01-16] MEDS: PANTOPRAZOLE SODIUM 40 MG TABLET PO SCH (06:20)
--- NOTE | 2018-01-16 07:57 | RADIOLOGY REPORT ---
EXAM: LEFT SHOULDER HISTORY: LEFT SHOULDER PAIN POST FALL. TECHNIQUE: Internal and external humerus rotation AP views of the left shoulder were obtained as well as scapular Y-views. Comparison: None. Encounter: Initial. FINDINGS: There is mild diffuse osteopenia limiting evaluation. There is evidence of comminuted, likely three part fracture of the distal left clavicle with apparent superior displacement of the proximal fracture fragment relative to the tow most distal fracture fragments. There is suggestion of minor apex superior angulation of the main fracture fragments. A small distal fracture fragment appears to be mildly displaced inferiorly. This does not definitely extend to the articular surface. No other fracture is seen nor is there dislocation. There are moderate hypertrophic degenerative changes of the acromioclavicular and glenohumeral joints. There is mild soft tissue swelling superior to the acromioclavicular joint. IMPRESSION: 1. MILDLY DISPLACED AND ANGULATED COMMINUTED FRACTURE OF THE DISTAL LEFT CLAVICLE. 2. MODERATE HYPERTROPHIC DEGENERATIVE CHANGES OF THE ACROMIOCLAVICULAR AND GLENOHUMERAL JOINTS. JOB NUMBER: [id number] MTDD
[2018-01-16] MEDS ORDERED: ACETAMINOPHEN 500 MG TABLET PO PRN (08:08)
[2018-01-16] MEDS: FUROSEMIDE 20 MG TABLET PO SCH (09:06)
[2018-01-16] MEDS: RIFAXIMIN 550 MG TABLET PO SCH ×2 (09:06→21:15)
[2018-01-16] MEDS: SPIRONOLACTONE 25 MG TAB PO SCH (09:06)
[2018-01-16] MEDS ORDERED: BREO (FLUTICASONE/VILANTEROL) 100MCG/25MCG INHALER INH SCH (10:00)
[2018-01-16] MEDS: URSODIOL 600 MG PO SCH ×2 (10:01→21:15)
[2018-01-16] MEDS: MESALAMINE 1.2 GM PO SCH ×2 (10:01→21:15)
[2018-01-16] MEDS: BREO ELLIPTA PO SCH (11:27)
[2018-01-16] MEDS: HYDROCODONE/APAP 5/325MG TABLET PO PRN (21:15)
[2018-01-17] MEDS: PANTOPRAZOLE SODIUM 40 MG TABLET PO SCH (06:28)
[2018-01-17] MEDS: RIFAXIMIN 550 MG TABLET PO SCH (09:46)
[2018-01-17] MEDS: SPIRONOLACTONE 25 MG TAB PO SCH (09:46)
[2018-01-17] MEDS: FUROSEMIDE 20 MG TABLET PO SCH (09:46)
[2018-01-17] MEDS: URSODIOL 600 MG PO SCH (09:47)
[2018-01-17] MEDS: MESALAMINE 1.2 GM PO SCH (09:47)
--- NOTE | 2018-01-17 09:50 | Discharge Note ---
VTE H&P Assessment - Risk for VTE Risk for VTE: No Risk Level: Very Low Risk Assessment Date: 01/16/18 Risk Assessment Time: 12:00 VTE Orders Placed or Will Be Placed: No VTE Reason for No Prophylaxis: Not Indicated Discharge Medications - Discharge Medications Prescriptions: Hydrocodone/APAP 5/325Mg [[place] 5Mg/325Mg] 1 each PO Q6H PRN #18 tab PRN Reason: Pain - Mod To Severe (5-10) Home Medications: Ambulatory Orders Acetaminophen [Tylenol] 325 mg PO DAILY tab 02/02/16 [Last Taken Unknown] Mesalamine [Lialda] 1.2 gm PO BID tab. 02/02/16 [Last Taken 03/30/17] Multivitamin [Multi-Vitamin Daily] 1 each PO DAILY tab 02/02/16 [Last Taken ] [place]-3 Fatty Acids/Fish Oil [Fish Oil 1,000 mg Capsule] 1 cap PO QD cap [Last Taken 03/30/17] Spironolactone 50 mg PO DAILY 01/10/17 [Last Taken 03/30/17] Calcium Carbonate [Calcium] 500 mg PO DAILY 03/30/17 [Last Taken 03/30/17] Rifaximin [Xifaxan] 550 mg PO BID 03/30/17 [Last Taken 03/30/17] Ursodiol 600 mg PO BID 03/30/17 [Last Taken 03/30/17] Omeprazole [Prilosec] 20 mg PO DAILY 01/15/18 [Last Taken Unknown] Fluticasone/Vilanterol 100/25 [Breo Ellipta 100-25 Mcg INH] 1 puff INH DAILY [Last Taken Unknown] Furosemide [Lasix] 20 mg PO DAILY tablet 01/17/18 [Last Taken Unknown] Hydrocodone/APAP 5/325Mg [[place] 5Mg/325Mg] 1 each PO Q6H PRN #18 tab 01/17/18 [ Last Taken Unknown] Discharge Note - Date Date of Discharge Note: 01/17/18 Condition: (1) Good Instructions: Cirrhosis (ED), Clavicle Fracture (ED), Fall Prevention for Older Adults (ED) Additional Instructions: follow up with dr lanier on January 22Monday at [facility]. sleep elevated. ice to shoulder. wear sling activity as tolerated Forms: Patient Portal Access
--- NOTE | 2018-01-17 10:01 | History and Physical Report ---
DATE OF ADMISSION: 01/16/2018 Surgeon: Jose Alejandro Philippe DO CHIEF COMPLAINT: This 77-year-old male who lives at home alone fell at about 8 p.m. today. HISTORY OF PRESENT ILLNESS: He was sitting on a chair with a blanket, he slipped off the chair, landing on his left side. He laid on the ground, could not get up for about 30 minutes before a neighbor came by and helped him up and brought him to the hospital for evaluation, evaluated by Dr. Dominguez and admitted to the hospital for weakness, left clavicle fracture, and social service consult for placement. 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 Ulcerative colitis. GERD, hepatitis, and jaundice, low back pain with a ruptured disc and cirrhosis of the liver, which has been for many years. He also has Marfan disease according to the patient. He said it is a new diagnosis for him, but he is tall; 6 feet 4 inches, skinny, and has long fingers. PAST SURGICAL HISTORY: Left hernia repair 2014, tonsillectomy, lung biopsy. He had a rare pneumonia in 2009, 2007 he had a right inguinal hernia repair and left mastectomy earlier because of the gynecomastia. MEDICATIONS ON ADMISSION: 1. Lasix 40 mg a day, but at this point he looks dry so we will back off to 20 mg a day. 2. Breo Ellipta 100/25 1 puff daily. 3. Ursodiol 600 mg b.i.d. 4. Spironolactone 50 mg per day. 5. Rifaximin 550 mg b.i.d. 6. Omeprazole 20 mg a day. 7. [place] 3 fatty acids 1 cap daily. 8. Multiple vitamins 1 a day. 9. Mesalamine (Lialda) 1.2 grams b.i.d. 10. Calcium carbonate 500 mg daily. 11. Tylenol 325 p.r.n. ALLERGIES: No known drug allergies. SOCIAL HISTORY: He has never smoked, no alcohol or drug use. REVIEW OF SYSTEMS: HEENT: No upper respiratory symptoms, cough, cold, or congestion. CARDIOVASCULAR: No chest pain, palpitations, or arrhythmias. RESPIRATORY: He does have COPD but it is stable at this time. GASTROINTESTINAL: He does have cirrhosis. He is not a candidate for liver transplant, he is very skinny. No nausea, vomiting, or abdominal pain. GENITOURINARY: No dysuria, hematuria, or frequency or burning on urination. MUSCULOSKELETAL: He moves all four extremities. He does have some arthritis and low back pain. NEUROLOGIC: No CVA paralysis or paresthesias. ENDOCRINE: No diabetes or thyroid disease. INTEGUMENT: No rash, ulcer, change in moles, no yellow skin, or abnormal moles. PHYSICAL EXAMINATION: GENERAL: Height is 6 feet 4 inches, weight is 147 pounds. VITAL SIGNS: Temperature is 98.6, pulse is 86, blood pressure is 91/52, respiratory rate is 16, pulse OX is 92% on room air. HEENT: Pupils are equal, round, and reactive to light and accomodation. Extraocular muscles intact. Nose is clear. Throat is clear. NECK: Supple. No jugular venous distention, no hepatojugular reflux, no carotid bruits. Thyroid is smooth. CARDIOVASCULAR: Regular rate and rhythm without murmurs, clicks, rubs, or gallops. RESPIRATORY: Clear to auscultation and percussion. ABDOMEN: Soft, nontender, no hepatosplenomegaly, no masses, no tenderness, bowel sounds active, no bruits. EXTREMITIES: He has a little appearance of jaundice in his eyes and his skin. BREASTS: Normal male breasts. RECTAL: Deferred. GENITALIA: Deferred. NEUROLOGIC: Cranial nerves II through XII intact. No gross defects. Sensation normal, strength normal, deep tendon reflexes equal bilaterally. Babinski's is negative. MENTAL STATUS: Alert and oriented x 3. IMPRESSION: 1. Clavicle fracture, left distal clavicle. 2. Weakness secondary to comorbid conditions. 3. History of cirrhosis. 4. History of ulcerative colitis. 5. History of GERD. 6. History of COPD. 7. History of low back pain. PLAN: 1. Increase activity. 2. Social service consult to determine placement. 3. A sling for a clavicle fracture. 4. This is an observation patient. [facility]
[2018-01-17] MEDS: BREO ELLIPTA PO SCH (10:40)
--- NOTE | 2018-01-17 10:58 | RADIOLOGY REPORT ---
EXAM: CHEST, ONE VIEW HISTORY: PENITENTIARY PLACEMENT. COPD. CIRRHOSIS. TECHNIQUE: A single mobile upright view of the chest was obtained. Comparison: Two view chest radiographic examination dated 01/10/17. Radiographic examination of the left shoulder dated 01/15/18. FINDINGS: There is a moderate to large right basilar pleural effusion associated with right lower lung volume loss and increased density consistent with compressive atelectasis and/or infiltrate. The left lung and pleural space are grossly clear. Evaluation of heart size is limited as the right heart border is obscured. No pulmonary venous hypertension. The thoracic aorta is tortuous and atherosclerotic. There is redemonstration of an acute fracture of the distal left clavicle not significantly changed since the recent radiographic examination of the left shoulder. IMPRESSION: 1. MODERATE TO LARGE RIGHT BASILAR PLEURAL EFFUSION WITH ASSOCIATED VOLUME LOSS AND INCREASED DENSITY IN THE LOWER RIGHT LOWER CONSISTENT WITH ATELECTASIS AND/OR INFILTRATE. 2. DISTAL LEFT CLAVICULAR FRACTURE REDEMONSTRATED. [facility]BER: [id number] [facility]
--- NOTE | 2018-01-17 12:36 | Discharge Note ---
VTE H&P Assessment - Risk for VTE Risk for VTE: No Risk Level: Very Low Risk Assessment Date: 01/16/18 Risk Assessment Time: 12:00 VTE Orders Placed or Will Be Placed: No VTE Reason for No Prophylaxis: Not Indicated Discharge Medications - Discharge Medications Prescriptions: Hydrocodone/APAP 5/325Mg [[place] 5Mg/325Mg] 1 each PO Q6H PRN #18 tab PRN Reason: Pain - Mod To Severe (5-10) Home Medications: Ambulatory Orders Acetaminophen [Tylenol] 325 mg PO DAILY tab 02/02/16 [Last Taken Unknown] Mesalamine [Lialda] 1.2 gm PO BID tab. 02/02/16 [Last Taken 03/30/17] Multivitamin [Multi-Vitamin Daily] 1 each PO DAILY tab 02/02/16 [Last Taken ] [place]-3 Fatty Acids/Fish Oil [Fish Oil 1,000 mg Capsule] 1 cap PO QD cap [Last Taken 03/30/17] Spironolactone 50 mg PO DAILY 01/10/17 [Last Taken 03/30/17] Calcium Carbonate [Calcium] 500 mg PO DAILY 03/30/17 [Last Taken 03/30/17] Rifaximin [Xifaxan] 550 mg PO BID 03/30/17 [Last Taken 03/30/17] Ursodiol 600 mg PO BID 03/30/17 [Last Taken 03/30/17] Omeprazole [Prilosec] 20 mg PO DAILY 01/15/18 [Last Taken Unknown] Fluticasone/Vilanterol 100/25 [Breo Ellipta 100-25 Mcg INH] 1 puff INH DAILY [Last Taken Unknown] Furosemide [Lasix] 20 mg PO DAILY tablet 01/17/18 [Last Taken Unknown] Hydrocodone/APAP 5/325Mg [[place] 5Mg/325Mg] 1 each PO Q6H PRN #18 tab 01/17/18 [ Last Taken Unknown] Discharge Note - Date Date of Discharge Note: 01/17/18 Disposition: Acute Care Hospital Transfer Condition: (1) Good Instructions: Cirrhosis (ED), Clavicle Fracture (ED), Fall Prevention for Older Adults (ED) Additional Instructions: follow up with dr lanier on January 22Monday at [facility]. sleep elevated. ice to shoulder. wear sling activity as tolerated Getting ready to send ppatient to [facility] assisted living a chest xray was done which showed a large pleural effusion and because of the pleural effusion will transfer to [facility] to Dr. Qureshi on D Service for further evaluation of the new pleural effusion. Prescriptions: Hydrocodone/APAP 5/325Mg [[place] 5Mg/325Mg] 1 each PO Q6H PRN #18 tab PRN Reason: Pain - Mod To Severe (5-10) Referrals: Jose Alejandro Lanier D.O. [Primary Care Provider] - Forms: Patient Portal Access
[2018-01-17] MEDS: HYDROCODONE/APAP 5/325MG TABLET PO PRN (13:20)
--- NOTE | 2018-01-18 12:40 | Discharge Summary ---
DATE OF ADMISSION: 01/16/2018 DATE OF DISCHARGE: 01/17/2018 ADMITTING DIAGNOSES: 1. Left distal clavicle fracture. 2. Weakness, improving. 3. Cirrhosis of the liver. 4. COPD, stable. 5. Colitis, stable. 6. GERD, stable. ATTENDING PHYSICIAN: Jose Alejandro Philippe DO REASON FOR HOSPITALIZATION: This 77-year-old male fell down. He slipped out of a chair onto the floor, fracturing his clavicle. He was seen in the Emergency Department by Dr. Dominguez, admitted to the hospital because he was too weak to send home. He had no one home to help him. He has a long-standing history of cirrhosis of the liver and weakness, and he has COPD. He recently was in [facility], but he wanted to be home, so he was discharged from [facility] about 2 months ago, and he has been doing fairly well at home, but just getting by. SIGNIFICANT FINDINGS: The clavicle fracture is distal clavicle, mildly displaced and angulated comminuted fracture of the distal left clavicle. He has degenerative changes of the AC and glenohumeral joints. LABORATORY: His hemoglobin is 9.7. WBC is 7900. His potassium is 3.3. BUN is 29. Creatinine is 1.9. Glucose is 135. Liver enzymes, AST is elevated at 54, ALT is normal at 28. Total bili is elevated at 4.8. Alkaline phosphatase is 255. THERAPY PROVIDED: The patient was given physical therapy. He is able to ambulate with his legs around the room; however, he cannot get out of a chair because of his arm. He has to push with both arms to get up, and he has difficulties getting up with the clavicle fracture. He was pretty much a 1-2-person assist getting out of the chair. Once he is up, he is ambulating with a 1-person stand-by. HOSPITAL COURSE: Gradually improved. CONDITION AT DISCHARGE: Much improved. DISCHARGE INSTRUCTIONS: Wear the sling for 4 weeks[address] up with Dr. Philippe on 01/22/[address] [facility]. Activity as tolerated. DISCHARGE MEDICATIONS: The medications on discharge first one is mesalamine 1.2 gram b.i.d. The trade name for that is Lialda. Multivitamins 1 a day, Tylenol 325 every 6 hours p.r.n. limit Tylenol to 3 grams in 24 hours, fish oil 1000 mg daily, spironolactone 50 mg daily, calcium carbonate 500 mg daily, ursodiol 600 mg b.i.d., Xifaxan 550 mg b.i.d., omeprazole 20 mg daily, Breo Ellipta 100/25 one puff daily, Lasix 20 mg daily, [place] 5 mg every 6 hours p.r.n. #18 pills prescribed 3-day supply switching over the Tylenol as needed after that. Addendum This patient was going to [facility] for assisted living and a chest x-ray was ordered to place him into [facility], which showed a large right pleural effusion. Because of this large right pleural effusion, I decided at that point to transfer him to [place] to Dr. Corbin's service at [facility] to evaluate the pleural effusion for possible malignancy and to remove some of the fluid for analysis. The patient was transported by basic ambulance to [facility] for further evaluation of the pleural effusion and COPD. Add to discharge diagnosis: Right large pleural effusion, COPD, possible atelectasis or infiltrate. MTDD
== END 2018-01-17 13:57 | disposition short-term general hospital (02) ==
LOC: ER 21:46 → MEDSURG 01-16 00:56
PROVIDERS: ADMIT Emergency Medicine; ATTEND Emergency Medicine
DX: S42.022A Displaced fracture of shaft of left clavicle, initial encounter for closed fracture (principal); K74.60 Unspecified cirrhosis of liver; R26.2 Difficulty in walking, not elsewhere classified; J90 Pleural effusion, not elsewhere classified; J44.9 Chronic obstructive pulmonary disease, unspecified; K51.90 Ulcerative colitis, unspecified, without complications; Q87.40 Marfan syndrome, unspecified; Z86.718 Personal history of other venous thrombosis and embolism
CPT/HCPCS: 71045; 80053; 85027; 94640; 96374; 96375; 99220; 99285; J2270; J2550